=== PATIENT | female | born 1995 | race African-American/Black ===

== ENCOUNTER 2017-04-01 18:48 | Emergency (ER) | payer MEDICAID ==
[~2017-04-01] VITALS: Ht 152.4 cm; Wt 108.4 kg
[2017-04-01 23:19] VITALS: BP 132/78
== END 2017-04-01 23:19 | disposition home or self-care (01) ==
LOC: ED 18:48
DX: L60.0 Ingrowing nail (principal); I89.1 Lymphangitis
CPT/HCPCS: J0696

== ENCOUNTER 2017-05-25 13:15 | Emergency (ER) | payer BC, MEDICAID ==
[2017-05-25 13:54] VITALS: BP 126/82
== END 2017-05-25 15:38 | disposition home or self-care (01) ==
LOC: ED 13:15
DX: B34.9 Viral infection, unspecified (principal); E66.9 Obesity, unspecified; J98.01 Acute bronchospasm

== ENCOUNTER 2017-08-25 22:32 | Inpatient (IN) | payer BC, MEDICAID ==
[~2017-08-25] VITALS: Ht 152.4 cm; Wt 113.2 kg
[2017-08-25 22:37] VITALS: Ht 152.4 cm; Wt 113.2 kg
[2017-08-26 01:06] LABS: BASOPHIL % 0.4 % (0-2); PLATELET COUNT 383 x10^3mcL (130-400)
[2017-08-26 01:08] LABS: UA SPECIFIC GRAVITY 1.025 (1.005-1.035); microscopic required? YES; urine erythrocyte 3+ (NEGATIVE)
[2017-08-26 01:18] LABS: CARBON DIOXIDE 25.8 mmol/L (21-32); CHLORIDE SERUM 105 mmol/L (98-107); CREATININE SERUM 0.8 mg/dL (0.6-1.0); GFR1 > 60 mL/min; GLUCOSE SERUM 110 mg/dL (74-106); POTASSIUM SERUM 3.6 mmol/L (3.5-5.1); SODIUM SERUM 137 mmol/L (136-145)
[2017-08-26 01:24] LABS: ALKALINE PHOSPHATASE 54 U/L (46-116); ALT/SGPT 17 U/L (14-59); AST/SGOT 12 U/L (15-37); TOTAL PROTEIN, SERUM 6.6 g/dL (6.4-8.2)
[2017-08-26 01:25] LABS: ALBUMIN 2.9 g/dL (3.4-5.0)
[2017-08-26 04:25] LABS: AMPHETAMINE QUAL UR NONE DETECTED (NEG <=1000)
[2017-08-26 04:32] LABS: T3 TOTAL 0.92 ng/mL
[2017-08-26 04:41] LABS: MAGNESIUM 2.1 mg/dL (1.8-2.4); PHOSPHOROUS 3.1 mg/dL (2.5-4.9)
[2017-08-26 04:43] LABS: FREE T4 0.89 ng/dL (0.76-1.46); FREE THYROXINE INDEX 2.3 ug/dL (1.4-4.5); T4(THYROXINE) 7.1 ug/dL (4.7-13.3)
[2017-08-26 04:47] VITALS: BP 113/64
[2017-08-26 09:18] VITALS: BP 124/70
[2017-08-26 09:27] LABS: BASOPHIL % 0.3 % (0-2); PLATELET COUNT 352 x10^3mcL (130-400)
[2017-08-26 09:31] LABS: RED CELL DISTRIBUTION WIDTH 15.8 % (11.5-14.5)
[2017-08-26 09:50] LABS: CALCIUM 7.7 mg/dL (8.5-10.1); CARBON DIOXIDE 24.4 mmol/L (21-32); CHLORIDE SERUM 105 mmol/L (98-107); CREATININE SERUM 0.6 mg/dL (0.6-1.0); GFR1 > 60 mL/min; GLUCOSE SERUM 89 mg/dL (74-106); SODIUM SERUM 135 mmol/L (136-145)
[2017-08-26 17:07] VITALS: BP 131/68
[2017-08-26 21:06] VITALS: BP 127/65
[2017-08-27 00:59] LABS: BASOPHIL % 0.3 % (0-2); PLATELET COUNT 374 x10^3mcL (130-400)
[2017-08-27 01:00] LABS: RED CELL DISTRIBUTION WIDTH 15.7 % (11.5-14.5)
[2017-08-27 05:36] VITALS: BP 115/59
[2017-08-27 06:20] LABS: BASOPHIL % 0.3 % (0-2); PLATELET COUNT 379 x10^3mcL (130-400)
[2017-08-27 06:35] LABS: CALCIUM 8.4 mg/dL (8.5-10.1); CHLORIDE SERUM 104 mmol/L (98-107); CREATININE SERUM 0.7 mg/dL (0.6-1.0); GFR1 > 60 mL/min; GLUCOSE SERUM 89 mg/dL (74-106); POTASSIUM SERUM 4.2 mmol/L (3.5-5.1); SODIUM SERUM 137 mmol/L (136-145)
[2017-08-27 08:46] VITALS: BP 123/64
[2017-08-27 16:00] VITALS: BP 103/57
[2017-08-27 21:08] VITALS: BP 120/68
[2017-08-28 06:12] VITALS: BP 111/71
[2017-08-28 06:49] LABS: CALCIUM 8.3 mg/dL (8.5-10.1); CARBON DIOXIDE 26.6 mmol/L (21-32); CHLORIDE SERUM 102 mmol/L (98-107); CREATININE SERUM 0.7 mg/dL (0.6-1.0); GFR1 > 60 mL/min; GLUCOSE SERUM 92 mg/dL (74-106); POTASSIUM SERUM 4.3 mmol/L (3.5-5.1); SODIUM SERUM 139 mmol/L (136-145)
[2017-08-28 07:08] LABS: BASOPHIL % 0.4 % (0-2); PLATELET COUNT 379 x10^3mcL (130-400)
[2017-08-28] MEDS ORDERED: LIPI10 PO (07:38)
[2017-08-28 08:51] VITALS: BP 96/60
[2017-08-28 10:56] VITALS: BP 96/60
== END 2017-08-28 11:50 | disposition home or self-care (01) | DRG 779 ==
LOC: ED 22:32 → DU 08-26 03:35 → MU 08-26 03:35 → DU 08-26 04:29 → MU 08-26 08:47
PROVIDERS: Emergency Medicine; Family Medicine; Obstetrics & Gynecology
PROC: 10D07Z8 Extraction of Products of Conception, Other, Via Natural or Artificial Opening (ICD-10-PCS; principal; 2017-08-27 11:30)
DX: O03.4 Incomplete spontaneous abortion without complication (principal); E87.1 Hypo-osmolality and hyponatremia; E44.0 Moderate protein-calorie malnutrition; Z68.42 Body mass index [BMI] 45.0-49.9, adult; O26.891 Other specified pregnancy related conditions, first trimester; O25.11 Malnutrition in pregnancy, first trimester; E78.5 Hyperlipidemia, unspecified
CPT/HCPCS: 83880; 84439; C1758; J2210; J2250; J2405; J3490; J7030; J7120